=== PATIENT | female | born 1965 | race Caucasian/White ===

== ENCOUNTER 2021-08-23 20:35 | Emergency (ER) | payer OTHER ==
[2021-08-23 20:56] VITALS: BP 135/62; PULSE 69; TEMP 97.6; BMI 19.3
[2021-08-23] MEDS ORDERED: IBUPROFEN 400 MG TABLET (FP) PO ONE ×2 (22:14→22:34)
== END 2021-08-23 22:44 | disposition home or self-care (01) ==
LOC: FER 20:35
DX: R07.89 Other chest pain (principal)
CPT/HCPCS: 36415; 71045-TC-FY; 82550; 84484; 93005; 99285-25